=== PATIENT | female | born 1995 | race African-American/Black ===

== ENCOUNTER 2017-10-24 19:30 | Observation (INO) | payer OTHER ==
[~2017-10-24 19:30] MED LIST: ZOFR4TAB3 SL
[2017-10-24] MEDS ORDERED: IOHEXOL 350 MG/ML 10 ML VIAL (for RAD DIAG) IVCONTRAST ONE (19:31)
[2017-10-24] MEDS ORDERED: TETANUS/DIPHTHERIA TOXOID ADULT 0.5 ML VIAL IM ONE (19:45)
[2017-10-24] MEDS ORDERED: SODIUM CHLORIDE 0.9% FLUSH 10 ML FLUSH IVF PRN (19:45)
[2017-10-24 19:46] VITALS: BP 132/76; PULSE 82; RESP 16; TEMP 97.5; O2SAT 100
[2017-10-24] MEDS ORDERED: ONDANSETRON HCL 4 MG/2 ML VIAL IV PUSH ONE (20:00)
[2017-10-24] MEDS ORDERED: MORPHINE SULFATE 4 MG/ML INJ IV PUSH ONE (20:00)
[2017-10-24 20:06] VITALS: RESP 16; O2SAT 100
[2017-10-24 20:12] LABS: AUTOMATED NEUTROPHIL # 2.8 TH/MM3 (1.8-7.7); BASOPHIL % 0.5 % (0.0-2.0); EOSINOPHIL % 0.3 % (0.0-4.0); HEMATOCRIT 32.3 % (35.0-46.0); HEMOGLOBIN 10.5 GM/DL (11.6-15.3); LYMPH % 41.3 % (9.0-44.0); LYMPHOCYTE # 2.4 TH/MM3 (1.0-4.8); MEAN CELL VOLUME 83.3 FL (80.0-100.0); MEAN CORPUSCULAR HEMOGLOBIN 27.1 PG (27.0-34.0); MEAN CORPUSCULAR HGB CONC 32.5 % (32.0-36.0); MEAN PLATELET VOLUME 9.2 FL (7.0-11.0); MONO % 10.8 % (0.0-8.0); MONOCYTE # 0.6 TH/MM3 (0-0.9); NEUT % 47.1 % (16.0-70.0); PLATELET COUNT 217 TH/MM3 (150-450); RED BLOOD COUNT 3.88 MIL/MM3 (4.00-5.30); RED CELL DISTRIBUTION WIDTH 13.1 % (11.6-17.2); WHITE BLOOD COUNT 5.9 TH/MM3 (4.0-11.0)
[2017-10-24] MEDS ORDERED: LIDOCAINE 2% JELLY 30 ML TUBE TOPICAL ONE (20:15)
[2017-10-24 20:31] LABS: BICARBONATE 27.4 MEQ/L (21.0-32.0); BLOOD UREA NITROGEN 15 MG/DL (7-18); CALCIUM 8.6 MG/DL (8.5-10.1); CHLORIDE 105 MEQ/L (98-107); CREATININE 0.84 MG/DL (0.50-1.00); GLOMERULAR FILTRATION RATE 104 ML/MIN (>89); GLUCOSE,RANDOM 90 MG/DL (74-106); SODIUM (NA) 139 MEQ/L (136-145)
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
[2017-10-24 21:32] VITALS: BP 120/62; PULSE 73; RESP 18; O2SAT 100
[2017-10-24] MEDS ORDERED: PROPOFOL 200 MG/20 ML AMP IV ONE (22:00)
[2017-10-24 22:10] VITALS: O2SAT 100
[2017-10-24] MEDS ORDERED: LIDOCAINE HCL 1% 30 ML VIAL INFIL ONE (22:15)
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
--- NOTE | 2017-10-24 22:40 | PD.OP ---
Operative Report Date of Surgery: Oct 24, 2017 Preoperative Diagnosis: right labial laceration Postoperative Diagnosis: same Procedure: Repair of right labial laceration and exam under anesthesia Anesthesia: propofol and 1% lidocaine Surgeon: Alverto Tanner MD Investment Analyst(s): none Operation and Findings: Exam under anesthesia revealed a right labial laceration. nl uterus, cervix and adnexa noted. The right labia minor was injected with lidocaine. The laceration was then repaired with 4-0 chromic suture in a running fashion. No other lacerations were noted. The patient's bleeding stopped once the repair was completed. No hematomas were noted s/p procedure. Pt. tolerated procedure well. Procedure was performed at the bedside. Alverto Tanner MD Oct 24, 2017 22:40
[2017-10-24 22:48] VITALS: BP 107/57; PULSE 98; RESP 16; O2SAT 100
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
[2017-10-24] MEDS ORDERED: SODIUM CHLORIDE 0.9% FLUSH 10 ML FLUSH IV FLUSH PRN (23:45)
[2017-10-24] MEDS ORDERED: MAGNESIUM HYDROXIDE SUSP 30 ML CUP PO PRN (23:45)
[2017-10-24] MEDS ORDERED: ONDANSETRON HCL 4 MG/2 ML VIAL IVP PRN (23:45)
[2017-10-24] MEDS ORDERED: SENNOSIDES 8.6 MG TAB PO PRN (23:45)
[2017-10-24] MEDS ORDERED: MORPHINE SULFATE 2 MG/ML INJ IV PUSH PRN (23:45)
[2017-10-24] MEDS ORDERED: NALOXONE HCL 0.4 MG/ML AMP IV PUSH PRN (23:45)
[2017-10-24] MEDS ORDERED: BISACODYL 10 MG SUPP RECTAL PRN (23:45)
[2017-10-24] MEDS ORDERED: ACETAMINOPHEN 325 MG TAB PO PRN (23:45)
[2017-10-24] MEDS ORDERED: LACTULOSE SYRUP 20 GM/30 ML CUP PO PRN (23:45)
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
[2017-10-25] VITALS: BP 125/67; PULSE 78; RESP 15; TEMP 98.6; O2SAT 100
[2017-10-25 07:15] LABS: BASOPHIL % 0.3 % (0.0-2.0); HEMATOCRIT 33.3 % (35.0-46.0); HEMOGLOBIN 10.9 GM/DL (11.6-15.3); LYMPH % 9.3 % (9.0-44.0); MEAN CELL VOLUME 83.3 FL (80.0-100.0); MEAN CORPUSCULAR HEMOGLOBIN 27.4 PG (27.0-34.0); MEAN CORPUSCULAR HGB CONC 32.9 % (32.0-36.0); MEAN PLATELET VOLUME 9.1 FL (7.0-11.0); MONO % 8.8 % (0.0-8.0); NEUT % 81.6 % (16.0-70.0); PLATELET COUNT 193 TH/MM3 (150-450); RED CELL DISTRIBUTION WIDTH 13.1 % (11.6-17.2)
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
[2017-10-25 07:46] LABS: BICARBONATE 26.1 MEQ/L (21.0-32.0); CALCIUM 8.5 MG/DL (8.5-10.1); CREATININE 0.64 MG/DL (0.50-1.00)
[2017-10-25 08:00] VITALS: BP 101/54; PULSE 60; RESP 16; TEMP 97.4; O2SAT 100
[2017-10-25] MEDS ORDERED: SODIUM CHLORIDE 0.9% FLUSH 10 ML FLUSH IV FLUSH SCH (09:00)
[2017-10-25] MEDS ORDERED: DOCUSATE SODIUM 50 MG/SENNA 8.6 MG TAB PO SCH (09:00)
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
[2017-10-25] MEDS ORDERED: BENZOCAINE 20% TOPICAL SPRAY 60 ML CAN TOPICAL PRN (11:30)
[2017-10-25] MEDS ORDERED: WITCH HAZEL 50%/GLYCERIN 12.5% 40 PAD JAR TOPICAL PRN (11:30)
[2017-10-25 12:00] VITALS: BP 122/70; PULSE 62; RESP 17; TEMP 98.5; O2SAT 100
[2017-10-25] MEDS ORDERED: NORC5TAB PO (13:48)
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
== END 2017-10-25 14:27 | disposition home or self-care (01) ==
LOC: NEPE 19:30 → NEDA 22:51 → N06A 23:56
PROVIDERS: ADMIT Family Medicine; ATTEND Family Medicine
DX: S39.94XA Unspecified injury of external genitals, initial encounter (principal); S09.90XA Unspecified injury of head, initial encounter; Z72.0 Tobacco use; V86.56XA Driver of dirt bike or motor/cross bike injured in nontraffic accident, initial encounter
CPT/HCPCS: 12001; 70450; 71260; 72125; 72129; 72132; 74177; 80048; 80307; 84703; 85025; 90471; 90714; 96374; 96375; 99156; 99285; G0378; J2270; J2405; Q9967

== ENCOUNTER 2017-10-31 17:02 | Emergency (ER) | payer SELFPAY ==
[~2017-10-31 17:02] MED LIST changes: +NORC5TAB PO; -ZOFR4TAB3 SL
[2017-10-31 17:03] VITALS: BP 124/61; PULSE 73; RESP 16; TEMP 98.8; O2SAT 99
--- NOTE | 2017-10-31 17:34 | PD ---
HPI Chief Complaint: Wound/Suture/Staple Re-Check Time Seen by Provider: 17:24 Travel History International Travel<30 days: No Contact w/Intl Traveler<30days: No Traveled to known affect area: No History of Present Illness HPI 22-year-old female presents to the emergency department for recheck of her right labial sutures that were placed on October 24, 2017. She reports increased pain to the area. She was supposed to follow-up outpatient with [facility] [employer] and does not know who she was supposed to see. She was not given any antibiotics. She denies fever, vomiting. Reports foul smell to the area. Rates pain 6/10, but is worse with palpation and pressure to the area. Described as a throbbing sensation. Has taken Lortab for symptom management. Her mom has been cleaning the area with hydrogen peroxide. No known relieving factors. Has no other medical complaints. No other modifying factors or associated signs or symptoms. PFSH Past Medical History Autoimmune Disease: No Cancer: No Cardiovascular Problems: No Chemotherapy: No Diabetes: No Diminished Hearing: No Endocrine: No Gastrointestinal Disorders: No Genitourinary: No Heparin Induced Thrombocytopen: No Immune Disorder: No Implanted Vascular Access Dvce: No Musculoskeletal: No Neurologic: No Psychiatric: No Reproductive: No Respiratory: No Radiation Therapy: No Sickle Cell Disease: No Thyroid Disease: No ?: Not : 0 Para: 0 Past Surgical History AICD: No Arteriovenous Shunt: No Gynecologic Surgery: Yes (abcess ovaries) Insulin Pump: No Joint Replacement: No Pacemaker: No Other Surgery: No Social History Alcohol Use: No Tobacco Use: No Substance Use: Yes (pot) Allergies-Medications (Allergen,Severity, Reaction): Coded Allergies: No Known Allergies (Unverified , 10/24/17) Reported Meds & Prescriptions Reported Meds & Active Scripts Active Ibuprofen 800 Mg Tab 800 Mg PO Q6HR PRN Bactrim DS (Sulfamethoxazole-Trimethoprim) 800-160 Mg Tab 1 Tab PO BID 10 Days Flagyl (Metronidazole) 500 Mg Tab 500 Mg PO BID 10 Days [place] (Hydrocodone-Acetaminophen) 5 Mg-325 Mg Tab 1 Tab PO Q6H PRN Review of Systems Except as stated in HPI: all other systems reviewed are Neg Physical Exam Narrative GENERAL: Well-nourished, well-developed black female patient, in no acute distress; afebrile, nontoxic-appearing SKIN: Warm and dry. HEAD: Atraumatic. Normocephalic. EYES: Pupils equal and round. No scleral icterus. No injection or drainage. ENT: Mucous membranes pink and moist. NECK: Trachea midline. No lymphadenopathy. CARDIOVASCULAR: Regular rate. RESPIRATORY: No accessory muscle use. GASTROINTESTINAL: Abdomen soft, non-tender, nondistended. Bilateral pelvic region nontender to palpation. Hepatic and splenic margins not palpable. No guarding, rigidity, rebound tenderness. PELVIC: Exam done in the presence of a nurse. Right labia is mildy edematous and without erythema; with tenderness on palpation; I can visualize a couple of the sutures; there is a small amount of blood, purulent drainage, and foul odor noted to opening of the vagina. No groin lymphadenopathy bilaterally. MUSCULOSKELETAL: No obvious deformities. No clubbing. No cyanosis. No edema. NEUROLOGICAL: Awake and alert. No obvious cranial nerve deficits. Motor grossly within normal limits. Normal speech. PSYCHIATRIC: Appropriate mood and affect; insight and judgment normal. Data Data Last Documented VS Vital Signs Date Time Temp Pulse Resp B/P (MAP) Pulse Ox O2 Delivery O2 Flow Rate FiO2 10/31/17 17:03 98.8 73 16 124/61 (82) 99 Orders Orders Oxycodone-Acetamin 7.5-325 Mg (Percocet (10/31/17 17:45) Wound Culture And Gram Stain (10/31/17 17:49) Metronidazole (Flagyl) (10/31/17 18:00) Sulfamet-Trimeth Ds 800-160 Mg (Bactrim (10/31/17 18:00) Ed Discharge Order (10/31/17 17:58) Mandatory Outpatient Referral (10/31/17 18:06) [facility] Medical Decision Making Medical Screen Exam Complete: Yes Emergency Medical Condition: Yes Medical Record Reviewed: Yes Differential Diagnosis Wound recheck, wound infection, medical clearance Narrative Course 22-year-old female presents for wound recheck after having right labial laceration repair on October 24, [address] [facility] Tanner repaired the laceration. Patient is afebrile and nontoxic-appearing. She denies fever, vomiting. The wound smells and appears with possible infection. Wound culture pending. Call placed to [place] [employer]. 175: I spoke with Dr. Freeman and she recommended for the patient to follow-up in the office and to call tomorrow to make an appointment; she recommended prescribing Flagyl. Flagyl and Bactrim administered in the ER. Flagyl and Bactrim prescribed for home. Ibuprofen prescribed for home. I did offer the patient a prescription for 4 more pain medications and she declined. Patient provided follow-up information for Dr. Tanner. Mandatory outpatient referral ordered for follow-up. Instructed patient to call tomorrow to make an appointment at Dr. Tanner's office. Patient verbalized understanding and agreement. Instructed patient to follow up with primary care provider. Patient verbalizes understanding and agreement with treatment plan. Patient is medically cleared and stable for discharge. Discussed reasons to return to the emergency department. Patient agrees with treatment plan. The patients vital signs are stable and the patient is stable for outpatient follow-up and treatment. Patient discharged home, stable and in no acute distress. Diagnosis Primary Impression: Encounter for wound re-check Additional Impression: Wound infection Referrals: Alverto Tanner MD Patient Instructions: General Instructions, Wound Infection (ED) Departure Forms: Tests/Procedures, Work Release Enter return to work date: Nov 07, 2017 Additional Instructions: Take antibiotics as prescribed Ibuprofen or Tylenol as directed and as needed for pain and inflammation Ice to affected area to help decrease pain and inflammation Follow-up with gynecology; Dr. Tanner's information is provided in your discharge instructions; call on Wednesday and make an appointment to be seen Follow-up with primary care provider Return to the emergency department immediately with worsening of symptoms Med/Other Pt SpecificInfo: Prescription(s) given Scripts Ibuprofen (Ibuprofen) 800 Mg Tab 800 MG PO Q6HR Y for PAIN, #30 TAB 0 Refills Prov: Haily HernandezP 10/31/17 Sulfamethoxazole-Trimethoprim (Bactrim DS) 800-160 Mg Tab 1 TAB PO BID for Infection for 10 Days, #20 TAB 0 Refills Prov: Haily HernandezP 10/31/17 Metronidazole (Flagyl) 500 Mg Tab 500 MG PO BID for Infection for 10 Days, #20 TAB 0 Refills Prov: Haily HernandezP 10/31/17 Disposition: 01 DISCHARGE HOME Condition: Stable Haily Hernandez Oct 31, 2017 17:34
[2017-10-31] MEDS ORDERED: oxyCODONE/ACETAMINOPHEN 7.5 MG/325 MG TAB PO ONE (17:45)
[2017-10-31] MEDS ORDERED: METR-1 PO (17:54)
[2017-10-31] MEDS ORDERED: BACT800T5 PO (17:54)
[2017-10-31] MEDS ORDERED: IBUP1TAB7 PO (17:57)
[2017-10-31] MEDS ORDERED: metroNIDAZOLE 500 MG TAB PO ONE (18:00)
[2017-10-31] MEDS ORDERED: SULFAMETHOXAZOLE-TRIMETHOPRIM DS 800-160 MG TAB PO ONE (18:00)
== END 2017-10-31 18:51 | disposition home or self-care (01) ==
LOC: NEPD 17:02
DX: S31.41XA Laceration without foreign body of vagina and vulva, initial encounter (principal); T81.4XXA Infection following a procedure, initial encounter; Y83.8 Other surgical procedures as the cause of abnormal reaction of the patient, or of later complication, without mention of misadventure at the time of the procedure; X58.XXXA Exposure to other specified factors, initial encounter
CPT/HCPCS: 86403; 87070; 87205; 99281